=== PATIENT | male | born 1995 | race Caucasian/White ===

== ENCOUNTER 2022-07-10 10:37 | Emergency (ER) | payer BC, OTHER ==
[~2022-07-10] VITALS: Ht 170.1 cm; Wt 104.3 kg
[~2022-07-10 10:37] MED LIST: AMOXICILLIN500 MG PO; AMOXIL500 MG PO; ATARAX25 MG PO; BACTRIM DS 8001 TA1 PO; CATAFLAM50 MG PO; CIPRO500 MG PO; FLONASE 0.05% 121 EA NAS; HYDROCODONE BIT1 T11 PO; INTUNIV1 MG PO; KENALOG0.1% TP; LOMOTIL 0.025 M1 TA1 PO; NKHM; PEN-VEE K500 MG PO; PHENERGAN W/ DE30 ML PO; PREDNISONE20 MG PO; TYLENOL W/ CODEI5 ML PO; ZITHROMAX Z PA250 MG PO; ZOFRAN ODT4 MG SL; ZYRTEC10 M2 PO
[2022-07-10 11:26] LABS: BASO % 0.2 % (0.0-1.0); EOS # 0.1 10*3/uL (0.0-0.4); HEMATOCRIT 41.4 % (42.0-52.0); LYMPH # 1.8 10*3/uL (1.3-4.4); LYMPH % 22.6 % (27.0-41.0); MEAN CORPUSCULAR HGB 29.8 pg (27.0-31.0); MEAN CORPUSCULAR HGB CONC 34.3 g/dl (33.0-37.0); MONO # 0.9 10*3/uL (0.1-1.0); MONO % 10.9 % (3.0-9.0); NEUT # 5.3 10*3/uL (2.3-7.9); NEUT % 65.1 % (47.0-73.0); PLATELET COUNT AUTOMATED 183 10*3/uL (130-400); RED BLOOD COUNT 4.76 10*6/uL (4.50-5.90); RED CELL DISTRI WIDTH 11.9 % (0-14.5); WHITE BLOOD COUNT 8.1 10*3/uL (4.8-10.8)
[2022-07-10 11:49] LABS: ALKALINE PHOSPHATASE 100 U/L (46-116); BUN 7 mg/dl (9-23); CHLORIDE 100 mmol/L (98-107); CREATININE 0.89 mg/dL (0.70-1.30); POTASSIUM 3.8 mmol/L (3.4-5.1); SGPT/ALT 43 U/L (10-49); SODIUM 136 mmol/L (136-145); TOTAL PROTEIN 7.6 gm/dL (6.0-8.0)
== END 2022-07-10 12:30 | disposition home or self-care (01) ==
LOC: ED 10:37
PROVIDERS: Nurse Practitioner Family
DX: B34.9 Viral infection, unspecified (principal); Z20.822 Contact with and (suspected) exposure to COVID-19; F17.200 Nicotine dependence, unspecified, uncomplicated